=== PATIENT | female | born 1935 | race Caucasian/White ===

== ENCOUNTER 2021-03-27 17:45 | Observation (INO) | payer MEDICARE ==
[~2021-03-27] VITALS: Ht 152.4 cm; Wt 54.4 kg
[2021-03-27 19:25] LABS: HEMOGLOBIN 12.6 gm/dl (12.3-15.3); RED BLOOD COUNT 4.3 M/UL (4.00-5.10); WHITE BLOOD COUNT 9.2 K/UL (4.5-11.0)
[2021-03-27 19:42] LABS: BUN/CREATININE RATIO 26 (0-10)
--- NOTE | 2021-03-28 01:11 | NUR ---
PT AND DAUGHTER AT BEDSIDE DID NOT KNOW WHAT MEDICATIONS PT WAS CURRENTLY TAKING. PT IS CONFUSED AND PER DAUGHTER, "MY BROTHER IS THE ONE WHO NORMALLY HANDLES THAT." WILL OBTAIN THEM TOMORROW AND WILL LET DAYSHIFT RN KNOW.
[2021-03-28 07:33] LABS: BUN/CREATININE RATIO 30 (0-10)
[2021-03-28] MEDS ORDERED: CEFUROXIME500 MG PO (09:31)
[2021-03-28] MEDS ORDERED: DITROPAN 5 MG TA5 MG PO (09:53)
[2021-03-28] MEDS ORDERED: HYDROCHLOROTH12.5 MG PO (09:58)
[2021-03-28] MEDS ORDERED: LOSARTAN POTAS100 MG PO (09:58)
[2021-03-28] MEDS ORDERED: PRAVASTATIN SOD40 MG PO (09:58)
[2021-03-28] MEDS ORDERED: LEVOTHYROXINE88 MCG PO (09:59)
--- NOTE | 2021-03-28 11:34 | NUR ---
INSTRUCTED ON MED TOXICITY FOR OLDER ADULTS. MAKE FOLLOW UP APPOINTMENTS IN [place], GOING HOME WITH [facility] FOR ASSISTANCE. VERBALIZED UNDERSTANDING. BENEDICT SMITH R.N.
== END 2021-03-28 12:39 | disposition home or self-care (01) ==
LOC: ER1 17:45 → CDU 23:22 → M/S 23:22
PROVIDERS: Family Medicine; ADMIT Internal Medicine
DX: T42.8X1A Poisoning by antiparkinsonism drugs and other central muscle-tone depressants, accidental (unintentional), initial encounter (principal); I10 Essential (primary) hypertension; E78.5 Hyperlipidemia, unspecified; K21.9 Gastro-esophageal reflux disease without esophagitis; M51.36 Other intervertebral disc degeneration, lumbar region; Z79.899 Other long term (current) drug therapy; Z20.822 Contact with and (suspected) exposure to COVID-19
CPT/HCPCS: 70450; 71045; 80048; 80053; 80307; 81001; 85025; 93005; 96372; 96374; 96375; 99285; G0378; G0480; J0696; J1650; J7030; U0002